=== PATIENT | female | born 1970 | race Two or more races ===

== ENCOUNTER 2018-04-04 12:39 | Emergency (ER) | payer SELFPAY ==
[~2018-04-04] VITALS: Ht 160 cm; Wt 68.0 kg
[2018-04-04 12:46] VITALS: BP 126/79
[2018-04-04] MEDS ORDERED: NKM (12:49)
[2018-04-04 13:39] LABS: APPEARANCE,URINE CLEAR; BILIRUBIN, URINE NEGATIVE (NEGATIVE); COLOR,URINE PALE YELLOW; GLUCOSE, URINE (UA) NEGATIVE (NEGATIVE); KETONES,URINE NEGATIVE (NEGATIVE); LEUKOCYTE ESTERASE ,URINE 1+ (NEGATIVE); NITRITE,URINE NEGATIVE (NEGATIVE); PH,URINE 7 (4.5-8.0); PROTEIN,URINE NEGATIVE (NEGATIVE); UROBILINOGEN,URINE NORMAL MG/DL (0.0-1.0)
[2018-04-04] MEDS ORDERED: PRENATAL + DHA1 EAC2 PO (14:32)
--- NOTE | 2018-04-04 14:32 | Emergency Room Report ---
History of Present Illness General Chief Complaint: General Complaint Source: Patient Present Illness HPI 47-year-old female presents to the emergency department for evaluation/ confirmation of positive at-home test. Patient has abdominal pain, nausea, vomiting, dominant all tenderness/cramping, vaginal discharge or bleeding. Allergies: Coded Allergies: No Known Allergies (Unverified , 04/04/18) Patient History Past Medical History: see triage record Past Surgical History: none Pertinent Family History: none Last Menstrual Period: 2 MONTHS AGO : 2 Para: 2 Reviewed Nursing Documentation: PMH: Agreed; PSxH: Agreed Nursing Documentation-PMH Past Medical History: No Stated History Review of Systems All Other Systems: negative except mentioned in HPI Physical Exam Vital Signs Date Time Temp Pulse Resp B/P (MAP) Pulse Ox O2 Delivery O2 Flow Rate FiO2 04/04/18 12:46 98.4 102 18 126/79 97 Room Air 98.4 Sp02 EP Interpretation: reviewed, normal General Appearance: no apparent distress, alert, GCS 15, non-toxic Head: normocephalic, atraumatic ENT: hearing grossly normal, normal voice Neck: full range of motion Respiratory: lungs clear, normal breath sounds, speaking full sentences Cardiovascular #1: regular rate, rhythm Gastrointestinal: normal bowel sounds, non tender, soft, non-distended, no guarding Genitourinary: normal inspection, no CVA tenderness Musculoskeletal: back normal, gait/station normal, normal range of motion, non- tender Neurologic: alert, oriented x3, responsive, motor strength/tone normal, sensory intact, normal gait, speech normal, grossly normal Psychiatric: judgement/insight normal Skin: normal color, no rash, warm/dry, well hydrated Lymphatic: no adenopathy Medical Decision Making PA Attestation Dr. Gonzalez is my supervising Physician whom patient management has been discussed with. Diagnostic Impression: Primary Impression: Positive test ER Course 47-year-old female presents to the emergency department for evaluation/ confirmation of positive at-home test. Patient has abdominal pain, nausea, vomiting, dominant all tenderness/cramping, vaginal discharge or bleeding. Ddx considered but are not limited to , ectopic , and accurate at-home test values. Vital signs: are WNL, pt. is afebrile H&PE are most consistent with possible no complaining of abdominal pain, vaginal bleeding/discharge or other symptoms at this time ORDERS: -UA is unremarkable -HCG quantitative was 94,805 ED INTERVENTIONS: None required at this time. DISCHARGE: At this time pt. is stable for d/c to home. Will provide printed patient care instructions, and any necessary prescriptions. Care plan and follow up instructions have been discussed with the patient prior to discharge. Last Vital Signs Date Time Temp Pulse Resp B/P (MAP) Pulse Ox O2 Delivery O2 Flow Rate FiO2 04/04/18 12:46 97.6 102 18 126/79 97 Room Air 97.6 Disposition: HOME, SELF-CARE Condition: Stable Scripts Cmb#95/Iron/Fa/Dha ( + DHA COMBO PACK) 1 Each Combo..pkg 1 EACH PO DAILY, #1 PACK 2 Refills Prov: Patrica Baird 04/04/18 Referrals: NOT CHOSEN IPA/MD,REFERRING (PCP) Patient Instructions: First Trimester of , [id number] Additional Instructions: Take medications as directed. Your Hcg Quantitative was 94,805 Follow up with a OBGYN within 3 days, even if your symptoms have resolved. Return sooner to ED if new symptoms occur, or current symptoms become worse. - Please note that this Emergency Department Report was dictated using [employer] secretary teacher technology software, occasionally this can lead to erroneous entry secondary to interpretation by the dictation equipment. Patrica Baird Apr 04, 2018 14:32
[2018-04-04 14:50] VITALS: BP 126/79
== END 2018-04-04 14:55 | disposition home or self-care (01) ==
LOC: EMR 13:15
DX: Z32.01 Encounter for pregnancy test, result positive (principal); R10.9 Unspecified abdominal pain; R11.2 Nausea with vomiting, unspecified; N89.8 Other specified noninflammatory disorders of vagina
CPT/HCPCS: 36415; 81003; 84702; 99284